=== PATIENT | male | born 1945 | race Caucasian/White ===

== ENCOUNTER → 2016-03-22 | Outpatient (CLI) | payer OTHER ==
[~2016-03-22] MED LIST: ASPIRIN EC325 M1 PO; ATENOLOL 50MG T50 MG PO; BENICAR HCT 401 EAC1; BENICAR HCT 401 EACH PO; CARVEDILOL12.5 MG PO; EFFIENT10 MG PO; FISH OIL 1,001000 MG PO; FLONASE 0.05%50 MCG; IMDUR 60 MG TAB60 M1 PO; IMDUR 60 MG TAB60 MG; LIPITOR40 MG PO; NITROGLYCERIN0.4 MG SL; NORVASC5 MG PO; TYLENOL325 MG PO; VITAMIN D32000 UNIT PO
--- NOTE | ~2016-03-22 | CARDNUC ---
[facility] [employer] [place] [address] CARDIAC NUCLEAR IMAGING REPORT Name: RAYMOND OBRIEN Room #: REG [facility]#: [id number] Admission: 03/22/16 Attend Phys: Masood Peterson MD Discharge: Date of : 43 Date of Service: 03/22/16 1232 Report #: [id number] THIS REPORT FOR: //name// CC: Josseline Peterson DATE OF SERVICE: 03/22/2016 Myocardial perfusion imaging study using regadenoson DATE OF STUDY: 03/22/2016. PRIMARY CARE PHYSICIAN: Josseline Hanna MD GENDER: Male. INDICATION: Dyspnea. CORONARY HISTORY: CAD/PCI. CARDIOVASCULAR RISK FACTORS: Age, hypertension, and hyperlipidemia. CARDIAC MEDICATIONS: Ranexa, Coreg, Imdur, Lipitor, and Norvasc. TYPE OF STUDY: The patient underwent a SPECT study. STRESS PROTOCOL: A total of 0.4 mg of regadenoson was injected intravenously, followed by Cardiolite. The patient did not ambulate during the procedure. HEMODYNAMIC DATA: The resting heart rate was 69 beats per minute, with a blood pressure 140/80 mmHg. Following regadenoson, the heart rate increased to 89 beats per minute and the systolic blood pressure did not significantly change. The patient had symptoms consistent with regadenoson, but no chest discomfort. ELECTROCARDIOGRAM: The resting electrocardiogram revealed sinus rhythm, first degree AV block. Following regadenoson, there were no significant arrhythmias or ST segment changes. PERFUSION IMAGING: Myocardial perfusion imaging was performed using Cardiolite, 11.3 mCi for the resting images and 34.9 mCi for the stress images. This was a same-day rest-stress imaging protocol. Gated SPECT images were obtained. Comparison of the post-pharmacologic stress and rest images revealed a mild fixed defect in the basal inferior segment. Prone imaging was performed with resolution of this defect, consistent with diaphragmatic attenuation artifact. The gated portion of the study revealed normal global and segmental LV systolic [place] [address] CARDIAC NUCLEAR IMAGING REPORT Name: RAYMOND OBRIEN Room #: REG [facility]#: [id number] Admission: 03/22/16 Attend Phys: Masood Peterson MD Discharge: Date of : 43 Date of Service: 03/22/16 1232 Report #: [id number] function, ejection fraction of 67%. IMPRESSION: 1. Clinical response, nondiagnostic. 2. Stress ECG response, nonischemic. 3. Perfusion imaging, nonischemic. 4. Ventricular function, normal. CONCLUSION: This study is of low probability for inducible ischemia or prior infarct. There is normal global and segmental LV systolic function. <ELECTRONICALLY SIGNED> By: Masood Peterson MD 03/23/16 0824 1232 1307 Masood Peterson MD /cora
== END ==
LOC: NUC 07:21
DX: R06.00 Dyspnea, unspecified (principal); I25.10 Atherosclerotic heart disease of native coronary artery without angina pectoris; I10 Essential (primary) hypertension; E78.5 Hyperlipidemia, unspecified

== ENCOUNTER → 2016-09-20 | Outpatient (CLI) | payer OTHER ==
--- NOTE | ~2016-09-20 | 2DMMODE ---
[facility] [place] [employer] [place] [address] 2 D/M-MODE ECHOCARDIOGRAM Name: RAYMOND OBRIEN Room #: REG REPLACED BY [facility]#: [id number] Admission: 09/20/16 Attend Phys: Masood Peterson MD Discharge: Date of : 43 Date of Service: 09/20/16 1027 Report #: [id number] THIS REPORT FOR: //name// APPROVED REPORT Study performed: 09/20/2016 08:14:11 EXAM: Comprehensive 2D, Doppler, and color-flow Echocardiogram Patient Location: Out-Patient Status: routine Other Information Study Quality: Adequate/low parasternal window. Indications CAD Hx: IN, stent, HTN, HLP 2D Dimensions RVDd: 33.82 mm LVEF(%): 56.31 (>50%) IVSd: 10.88 (7-11mm) LVOT Diam: 20.17 (18-24mm) LVDd: 51.13 mm PWd: 10.30 (7-11mm) LVDs: 36.00 (25-40mm) Aortic Root: 29.57 mm Pascual's LVEF: 56.31 % Volumes Left Atrial Volume (Systole) Single Plane 4CH: 29.05 mL Single Plane 2CH: 34.22 mL LA ESV Index: 18.00 mL/m2 Aortic Valve AoV Peak Bhavesh.: 2.05 m/s AO Peak Gr.: 16.85 mmHg LVOT Max P.52 mmHg AO Mean Gr.: 9.57 mmHg AO V2 Mean: 1.50 m/s LVOT Max V: 1.17 m/s AO V2 VTI: 42.83 cm LUIS Vmax: 1.83 cm2 Mitral Valve E/A Ratio: 0.7 MV Decel. Time: 302.60 ms MV E Max Bhavesh.: 0.62 m/s [facility] [place] [employer] [place] [address] 2 D/M-MODE ECHOCARDIOGRAM Name: RAYMOND OBRIEN Room #: [facility]#: [id number] Admission: 09/20/16 Attend Phys: Masood Peterson MD Discharge: Date of : 43 Date of Service: 09/20/16 1027 Report #: [id number] MV A Bhavesh.: 0.90 m/s MV PHT: 87.75 ms IVRT: 106.11 ms Pulmonary Valve PV Peak Bhavesh.: 1.00 m/s PV Peak Gr.: 4.03 mmHg Pulmonary Vein P Vein S: 0.53 m/s P Vein A: 0.38 m/s P Vein D: 0.33 m/s P Vein A Dur.: 110.7 msec P Vein S/D Ratio: 1.61 Tricuspid Valve TR Peak Bhavesh.: 1.91 m/s RAP Estimate: 5.00 mmHg TR Peak Gr.: 14.64 mmHg PA Pressure: 20.00 mmHg Left Ventricle The left ventricle is normal size. There is normal LV segmental wall motion. There is normal left ventricular wall thickness. Left ventricular systolic function is normal. LVEF is 55%. Grade I - abnormal relaxation pattern. Right Ventricle The right ventricle is normal size. The right ventricular systolic function is normal. Atria The left atrium size is normal. The right atrium size is normal. Aortic Valve The aortic valve is not well visualized but appears calcified. Trace aortic regurgitation. There is borderline mild valvular aortic stenosis. Calculated aortic valve area is 1.8 cm2 with maximum pressure gradient of 17 mmHg and mean pressure gradient of 10 mmHg. Mitral Valve The mitral valve is normal in structure. Mild mitral regurgitation. Tricuspid Valve The tricuspid valve is normal in structure. There is trace tricuspid regurgitation. The right atrial pressure is estimated at 5 mmHg. Estimated PAP is 20mmHg. [address] [address] 2 D/M-MODE ECHOCARDIOGRAM Name: RAYMOND OBRIEN Room #: REG REPLACED [facility]#: [id number] Admission: 09/20/16 Attend Phys: Masood Peterson MD Discharge: Date of : 43 Date of Service: 09/20/16 1027 Report #: [id number] Pulmonic Valve Pulmonic valve is not well visualized. Trace pulmonic regurgitation. Great Vessels The aortic root is normal in size. Ascending aorta is not well visualized. IVC is normal in size and collapses >50% with inspiration. Pericardium There is no pericardial effusion. <Conclusion> The left ventricle is normal size. Left ventricular systolic function is normal. Grade I - abnormal relaxation pattern. The right ventricle is normal size. The left atrium size is normal. There is borderline mild valvular aortic stenosis. Calculated aortic valve area is 1.8 cm2 with maximum pressure gradient of 17 mmHg and mean pressure gradient of 10 mmHg. Mild mitral regurgitation. There is trace tricuspid regurgitation. The right atrial pressure is estimated at 5 mmHg. Estimated PAP is 20mmHg. <ELECTRONICALLY SIGNED> By: Masood Peterson MD 09/20/16 1027 1027 1027 Masood Peterson MD /INF
== END ==
LOC: CV 08:56
DX: I25.10 Atherosclerotic heart disease of native coronary artery without angina pectoris (principal); I34.0 Nonrheumatic mitral (valve) insufficiency

== ENCOUNTER → 2018-03-27 | Outpatient (CLI) | payer OTHER | LOC: NUC 09:01 | DX: I25.10 Atherosclerotic heart disease of native coronary artery without angina pectoris (principal); E78.5 Hyperlipidemia, unspecified; I10 Essential (primary) hypertension; I25.2 Old myocardial infarction ==

== ENCOUNTER 2018-09-05 23:02 | Emergency (ER) | payer OTHER ==
[~2018-09-05] VITALS: Ht 170.2 cm; Wt 81.7 kg
[2018-09-05 23:52] LABS: ABSOLUTE NEUTROPHILS 3.6 thou/uL (1.4-8.2); BASOPHILS 1.2 % (0.0-2.0); EOSINOPHILS 1.4 % (0.0-3.0); HEMATOCRIT 36.3 % (42.0-52.0); HEMOGLOBIN 12.5 gm/dL (14.0-18.0); MCH 31.8 pg (26.0-34.0); MCHC 34.3 g/dL (28.0-37.0); MCV 92.7 fL (80.0-100.0); MONOCYTES 9.6 % (1.0-8.0); PLATELET COUNT 240 thou/uL (150-400); POLYS 58.8 % (36.0-66.0); RBC 3.92 mil/uL (4.50-6.00); RDW 13.5 % (10.5-14.5); WBC 6.1 thou/uL (4.0-11.0)
[2018-09-06] LABS: ANION GAP 10 mmol/L (7-16); BUN 19 mg/dL (7-18); CALCIUM 9.4 mg/dL (8.5-10.1); CHLORIDE 105 mmol/L (98-107); CO2 25 mmol/L (21-32); CREATININE 1.6 mg/dL (0.7-1.3); GLUCOSE 113 mg/dL (74-106); POTASSIUM 3.8 mmol/L (3.5-5.1); SODIUM 140 mmol/L (136-145)
[2018-09-06 00:09] LABS: TROPONIN-I <0.06 ng/mL (<0.06)
[2018-09-06 04:14] VITALS: BP 136/83
--- NOTE | 2018-09-08 17:24 | EKG ---
[address] [address] ELECTROCARDIOGRAM REPORT Name: RAYMOND OBRIEN [id number] ������������������ Admission: 09/05/18 ������������������ Attend Phys: Discharge: 09/06/18 ������������������ Date of : 43 Report #: [id number] ����������������������������������������������������������������� [id number] THIS REPORT FOR: //name// [facility] ED Test Date: 2018-09-05 Test Time: 23:12:56 Pat Name: RAYMOND OBRIEN Department: Room: Gender: M Marketing Coordinator: BENY : 1945 Requested By: Antonio Fernandes Order Number: [id number] MD: Garett Monson Measurements Intervals Basile Rate: 65 P: 22 TX: 203 QRS: -3 QRSD: 87 T: 35 QT: 379 QTc: 394 Interpretive Statements Sinus rhythm with borderline first-degree heart block Low voltage, precordial leads Baseline wander nonspecific ST-T wave changes Leftward axis Compared to ECG 11/17/2013 06:28:43 Electronically Signed On 09-08-2018 17:23:59 CDT by Garett Monson [email or web address] ��������������������������������������������� <ELECTRONICALLY SIGNED> ���������������������������������������� By: Garett Monson MD ��������������������������������������������� 09/08/18 1723 2312 2312 Garett Monson MD /EPI
== END 2018-09-06 04:15 | disposition home or self-care (01) ==
LOC: ER 23:02
PROVIDERS: Emergency Medicine
DX: I10 Essential (primary) hypertension (principal); R06.02 Shortness of breath; R33.9 Retention of urine, unspecified; I25.10 Atherosclerotic heart disease of native coronary artery without angina pectoris; E78.5 Hyperlipidemia, unspecified; E66.9 Obesity, unspecified; Z68.28 Body mass index [BMI] 28.0-28.9, adult; Z95.5 Presence of coronary angioplasty implant and graft; Z87.442 Personal history of urinary calculi; Z87.01 Personal history of pneumonia (recurrent)

== ENCOUNTER → 2019-05-25 | Outpatient (CLI) | payer OTHER | LOC: SJCVCIMAG 08:48 | DX: I08.0 Rheumatic disorders of both mitral and aortic valves (principal); I25.10 Atherosclerotic heart disease of native coronary artery without angina pectoris; R60.0 Localized edema; I10 Essential (primary) hypertension; E78.00 Pure hypercholesterolemia, unspecified; Z79.82 Long term (current) use of aspirin; Z79.899 Other long term (current) drug therapy; Z87.891 Personal history of nicotine dependence; Z95.5 Presence of coronary angioplasty implant and graft ==

== ENCOUNTER → 2019-11-23 | Outpatient (CLI) | payer OTHER | LOC: SJCVC 11:12 | PROVIDERS: ATTEND Internal Medicine Cardiovascular Disease | DX: R00.1 Bradycardia, unspecified (principal); I10 Essential (primary) hypertension; I25.10 Atherosclerotic heart disease of native coronary artery without angina pectoris; E78.00 Pure hypercholesterolemia, unspecified; R06.00 Dyspnea, unspecified; R60.9 Edema, unspecified ==

== ENCOUNTER → 2020-05-23 | Outpatient (CLI) | payer OTHER | LOC: SJCVCIMAG 08:49 | PROVIDERS: ATTEND Internal Medicine Cardiovascular Disease | DX: I49.3 Ventricular premature depolarization (principal); I44.0 Atrioventricular block, first degree; I25.10 Atherosclerotic heart disease of native coronary artery without angina pectoris; R06.00 Dyspnea, unspecified; I25.2 Old myocardial infarction; I10 Essential (primary) hypertension; E78.00 Pure hypercholesterolemia, unspecified; G47.33 Obstructive sleep apnea (adult) (pediatric); N40.0 Benign prostatic hyperplasia without lower urinary tract symptoms; Z82.49 Family history of ischemic heart disease and other diseases of the circulatory system; Z87.891 Personal history of nicotine dependence; Z79.82 Long term (current) use of aspirin; Z79.899 Other long term (current) drug therapy; Z95.5 Presence of coronary angioplasty implant and graft; Z88.8 Allergy status to other drugs, medicaments and biological substances ==

== ENCOUNTER → 2020-11-28 | Outpatient (CLI) | payer OTHER | LOC: SJCVC 13:51 | PROVIDERS: ATTEND Internal Medicine | DX: R94.31 Abnormal electrocardiogram [ECG] [EKG] (principal); I44.0 Atrioventricular block, first degree; I11.9 Hypertensive heart disease without heart failure; I25.10 Atherosclerotic heart disease of native coronary artery without angina pectoris; R60.9 Edema, unspecified; Z79.899 Other long term (current) drug therapy; Z79.82 Long term (current) use of aspirin; Z87.891 Personal history of nicotine dependence; Z72.89 Other problems related to lifestyle ==